=== PATIENT | male | born 1960 | race Caucasian/White ===

== ENCOUNTER 2024-06-06 12:42 | Outpatient (AMB) | payer MEDICARE, OTHER, SELFPAY ==
--- NOTE | 2024-06-06 12:50 | A.OFFVIS_ITS ---
Intake Visit Reasons: [employer]- Left Knee Pain Intake Note: Mr. Wheeler presents with complaints of progressively worsening left knee pain and giving way. The patient states that he underwent left knee arthroscopic surgery several years ago. He got very good relief from that procedure initially. The patient states that approximately 6 months ago he twisted his left knee while splitting wood with his son. Since that time his symptoms have gotten worse in spite of continued non operative treatments. He has had in jections in the past which gave him minimal relief. He has failed the last 6 weeks of conservative treatment. Has tried Tylenol and anti-inflammatory medicines which gave him only mild relief. He has also done physical therapy exercises which aggravated his pain. All of his pain is along the medial aspect of his knee. He states that his left knee will give out several times per day. . Allergies No Known Allergies Allergy (Verified 06/06/24 12:57) Medication List - Last Reconciled 06/06/24 by Cb Fontenot MD No Known Home Meds Physical Exam Const Other: Well-nourished well-developed very friendly male awake alert and oriented x3 in no acute distress Extrem Other: Bilateral lower extremity examination shows good capillary refill, no skin lesions noted, normal sensation light touch Left knee shows a minimal effusion, minimal crepitus with range of motion, tenderness along his medial joint line, positive Spencer's test, no instability Results Reviewed Results Reviewed: Standing full weight-bearing x-rays of the patient's left knee show mild diffuse joint space narrowing, no acute bony abnormalities Assessment & Plan Assessment & Plan (1) Tear of medial meniscus of left knee: Code(s): S83.242A - Other tear of medial meniscus, current injury, left knee, initial encounter Category: Medical Plan Mr. Wheeler presents with recurrent left knee pain and mechanical symptoms most likely due to a recurrent medial meniscus tear. Thus, I will send the patient for an MRI of his left knee for further evaluation. I will see him back once the MRI is completed to discuss the findings and treatment options. He will continue with his activity modifications in the meantime. He will contact me prior to his follow-up appointment should any questions or concerns arise. I spent 22 minutes in reviewing the patient's records and imaging studies, see ing the patient and documenting in the medical record. Orders: Orders MR knee LT wo con Today S83.242A - Other tear of medial meniscus, current injury, left knee, initial encounter Coding Level of Care Code Est Pt Level 3 (97255) Complex EM visit Add On G2211 Diagnoses Tear of medial meniscus of left knee S83.242A
== END 2024-06-06 13:17 | disposition home or self-care (01) ==
PROVIDERS: Visit Provider Orthopaedic Surgery
DX: S83.242A Other tear of medial meniscus, current injury, left knee, initial encounter (principal)
CPT/HCPCS: 99213; G2211

== ENCOUNTER → 2024-06-06 12:42 | Outpatient (BNVA) | payer MEDICARE, OTHER, SELFPAY | PROVIDERS: Visit Provider Orthopaedic Surgery | DX: S83.242A Other tear of medial meniscus, current injury, left knee, initial encounter (principal); X58.XXXA Exposure to other specified factors, initial encounter; Y93.9 Activity, unspecified; Y92.9 Unspecified place or not applicable; Y99.9 Unspecified external cause status | CPT/HCPCS: 99212 ==

== ENCOUNTER 2024-08-13 13:14 | Outpatient (AMB) | payer MEDICARE, OTHER, SELFPAY ==
--- NOTE | 2024-08-13 13:20 | MHC.OFFVIS ---
Intake Visit Reasons: OV- Left knee MRI review Intake Note: Dc is a 63 year old male who presents to the office today for a Left knee MRI review. The patient states that he retired from work 2 weeks ago. He continues with his exercise program. He states that his left knee discomfort has improved over the last few weeks. He does not take any medicines for his discomfort. He denies any locking or giving way. Allergies No Known Allergies Allergy (Verified 08/13/24 13:20) Medication List - Last Reconciled 08/13/24 by Cb Fontenot MD prednisone mg PO Physical Exam Const Other: Well-nourished well-developed very friendly male awake alert and oriented x3 in no acute distress Extrem Other: Bilateral lower extremity examination shows good capillary refill, no skin lesions noted, normal sensation light touch Left knee examination shows a minimal effusion, minimal crepitus with range of motion, mild tenderness along his medial joint line, positive Spencer's test, no instability Results Reviewed Results Reviewed: MRI of the patient's left knee shows mild diffuse degenerative changes as well as a tear of the medial meniscus, no acute bony abnormalities Assessment & Plan Assessment & Plan (1) Tear of medial meniscus of left knee: Code(s): S83.242A - Other tear of medial meniscus, current injury, left knee, initial encounter Category: Medical Plan Mr. Wheeler presents with intermittent left knee discomfort due to early degenerative joint disease as well as a tear of his medial meniscus. I had a lengthy discussion with the patient regarding the treatment options. At this point the patient's symptoms are tolerable to him. He will continue with activity modifications. He will follow up with me on an as-needed basis should his symptoms worsen in any way. I spent 21 minutes in reviewing the patient's records and imaging studies, seeing the patient and documenting in the medical record. Coding Level of Care Code Est Pt Level 3 (13011) Complex EM visit Add On G2211 Diagnoses Tear of medial meniscus of left knee S83.242A
== END 2024-08-13 13:48 | disposition home or self-care (01) ==
PROVIDERS: Visit Provider Orthopaedic Surgery
DX: S83.242A Other tear of medial meniscus, current injury, left knee, initial encounter (principal)
CPT/HCPCS: 99213; G2211

== ENCOUNTER → 2024-08-13 13:14 | Outpatient (BNVA) | payer MEDICARE, OTHER, SELFPAY | PROVIDERS: Visit Provider Orthopaedic Surgery | DX: S83.242D Other tear of medial meniscus, current injury, left knee, subsequent encounter (principal); M17.12 Unilateral primary osteoarthritis, left knee; X58.XXXD Exposure to other specified factors, subsequent encounter | CPT/HCPCS: 99212 ==